=== PATIENT | female | born 1940 | race Caucasian/White ===

== ENCOUNTER 2017-01-02 13:39 | Outpatient (CLI) | payer MEDICARE ==
--- NOTE | 2017-01-02 15:54 | Mammography Report ---
DIGITAL DIAGNOSTIC LEFT MAMMOGRAM: 01/02/2017 CLINICAL INDICATION: Possible nodule on screening. COMPARISON: 12/08/2016. TECHNIQUE: Left true lateral and spot compression views. FINDINGS: Left subglandular silicone implant is stable. The questionable density in the left lower c entral anterior breast dissipates on additional compression. No underlying mass lesion or architectur al distortion is appreciated. IMPRESSION: BENIGN FINDINGS. RECOMMENDATION: ROUTINE ANNUAL SCREENING UNLESS OTHERWISE CLINICALLY INDICATED. BIRADS CATEGORY 2-BENIGN FINDINGS. STANDARD QUALIFYING STATEMENTS 1. This examination was reviewed with the aid of Computer-Aided Detection (CAD). 2. A negative or benign imaging report should not delay biopsy if clinically suspicious findings are present. Consider surgical consultation if warranted. More than 5% of cancers are not identified by i maging. 3. Dense breasts may obscure an underlying neoplasm. JOB #: [id number] EXT JOB #:[id number]
== END 2017-01-02 13:40 | disposition home or self-care (01) ==
LOC: DI 13:39
PROVIDERS: ATTEND Nurse Practitioner Family
DX: R92.8 Other abnormal and inconclusive findings on diagnostic imaging of breast (principal)

== ENCOUNTER 2017-03-26 09:33 | Day surgery (SDC) | payer MEDICARE ==
[2017-03-26 10:06] LABS: GLUCOSE, URINE (UA) NEGATIVE (NEGATIVE); KETONES,URINE (UA) 40 mg/dL (NEGATIVE); LEUKOCYTE ESTERASE, URINE SMALL (NEGATIVE); NITRITE,URINE NEGATIVE (NEGATIVE); OCCULT BLOOD,URINE MODERATE (NEGATIVE); PH,URINE 6.5 PH (5.0-7.5); PROTEIN,URINE NEGATIVE (NEGATIVE); UROBILINOGEN,URINE 0.2 (NORMAL) E.U./dL (NORMAL)
[2017-03-26 10:16] LABS: BILIRUBIN,URINE NEGATIVE (NEGATIVE); CLARITY,URINE SL. CLOUDY (CLEAR); ICTOTEST,URINE NEGATIVE
[2017-03-26 10:19] LABS: RBC,URINE 0-5 /HPF (0-5)
[2017-03-26 10:20] LABS: BACTERIA,URINE Moderate /HPF (None Seen); EPITHELIAL CELLS,UR FEW Transitional /HPF (<= Few); MUCUS,URINE Marked Strands; SQUAMOUS EPITHELIAL CELL,UR NONE SEEN (<= Few)
--- NOTE | 2017-03-26 10:26 | ED Physician Documentation ---
PD HPI ABD PAIN - Stated complaint Stated Complaint: ABD PX - Chief complaint Chief Complaint: Abd Pain - History obtained from History obtained from: Patient, Family - History of Present Illness Timing - onset: Yesterday Timing - duration: Days (1) Timing - details: Gradual onset, Still present Quality: Sharp, Pain Location: RLQ Improved by: Laying still Worsened by: Moving, Position, Palpation Associated symptoms: Nausea Similar symptoms before: Has not had sx before Recently seen: Not recently seen - Additional information Additional information: 76-year-old female was previously well and until yesterday when she began to develop some pain across her upper abdomen. The pain was feeling like a belt across the upper abdomen and it is migrated down to the right lower quadrant over the period of the day. She had a reduced level of appetite and only ate a banana and some water. She did fall off of a ladder about 6 days ago injuring her left eye and her back. She did not injure her abdomen with this with any direct contusion. Review of Systems Constitutional: denies: Fever Eyes: denies: Decreased vision Ears: denies: Ear pain Nose: denies: Congestion Throat: denies: Sore throat Cardiac: denies: Chest pain / pressure, Palpitations Respiratory: denies: Dyspnea GI: reports: Abdominal Pain, Nausea. denies: Abdominal Swelling, Vomiting, Constipation, Diarrhea : denies: Dysuria, Frequency Skin: denies: Rash Musculoskeletal: reports: Back pain. denies: Neck pain, Extremity pain Neurologic: reports: Head injury. denies: Generalized weakness, Focal weakness , Numbness, Headache, LOC PD PAST MEDICAL HISTORY - Past Medical History Past Medical History: No - Past Surgical History Past Surgical History: Yes Ortho: Knee replacement - Present Medications Home Medications: Ambulatory Orders Medication Instructions Recorded Confirmed No Known Home Medications [No 03/26/17 03/26/17 Known Home Medications] - Allergies Allergies/Adverse Reactions: Allergies Allergy/AdvReac Type Severity Reaction Status Date / Time Penicillins Allergy Unknown Verified 03/26/17 09:42 - Social History Does the pt smoke?: Yes Smoking Status: Current every day smoker Does the pt drink ETOH?: No Does the pt have substance abuse?: No - Immunizations Immunizations are current?: No PD ED PE NORMAL - Vitals Vital signs reviewed: Yes (Normal) - General General: Alert and oriented X 3, No acute distress, Well developed/nourished - HEENT HEENT: PERRL, EOMI, Other (The patient does have some ecchymosis around the left periorbital tissues consistent with an injury to the area about 6 days ago. 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, No motor deficit, No sensory deficit, Normal speech Eye Opening: Spontaneous Motor: Obeys Commands Verbal: Oriented GCS Score: 15 - Psych Psych: Normal mood, Normal affect Results - Vitals Vitals: Vital Signs - 24 hr 03/26/17 03/26/17 03/26/17 09:39 11:39 12:48 Temperature 36.1 C L Heart Rate 67 72 78 Respiratory 16 18 16 Rate Blood Pressure 125/73 132/72 H 120/74 O2 Saturation 100 99 94 03/26/17 03/26/17 03/26/17 14:45 14:50 14:55 Temperature Heart Rate Respiratory Rate Blood Pressure O2 Saturation 100 100 100 03/26/17 03/26/17 03/26/17 15:00 15:05 15:10 Temperature Heart Rate Respiratory Rate Blood Pressure O2 Saturation 100 100 100 03/26/17 03/26/17 03/26/17 15:15 15:20 15:30 Temperature Heart Rate Respiratory Rate Blood Pressure O2 Saturation 99 99 97 03/26/17 03/26/17 03/26/17 15:35 15:40 15:45 Temperature Heart Rate Respiratory Rate Blood Pressure O2 Saturation 96 96 96 Oxygen O2 Source Room air - Labs Labs: Laboratory Tests 03/26/17 03/26/17 03/26/17 09:45 10:10 10:10 WBC 9.1 RBC 3.96 L Hgb 13.1 Hct 37.4 MCV 94.3 MCH 33.0 H MCHC 35.0 RDW 12.7 Plt Count 143 MPV 8.0 Neut # 8.2 H Lymph # 0.5 L Garland # 0.4 Eos # 0.0 Baso # 0.0 Absolute Nucleated RBC 0.01 Nucleated RBC % 0.1 Sodium 132 L Potassium 3.6 Chloride 98 L Carbon Dioxide 24 Anion Gap 10.0 BUN 13 Creatinine 0.5 Estimated GFR (MDRD) 120 Glucose 116 H Calcium 9.2 Total Bilirubin 2.9 H AST 27 ALT 21 Alkaline Phosphatase 57 Total Creatine Kinase 38 CK-MB (CK-2) Troponin I Total Protein 6.5 L Albumin 3.9 Globulin 2.6 Albumin/Globulin Ratio 1.5 Lipase 16 L Urine Color YELLOW Urine Clarity SL. CLOUDY Urine pH 6.5 Ur Specific Yarnell 1.020 Urine Protein NEGATIVE Urine Glucose (UA) NEGATIVE Urine Ketones 40 H Urine Occult Blood MODERATE H Urine Nitrite NEGATIVE Urine Bilirubin NEGATIVE Urine Urobilinogen 0.2 (NORMAL) Ur Leukocyte Esterase SMALL H Urine RBC 0-5 Urine WBC 11-25 H Ur Epithelial Cells FEW Transitional Ur Squamous Epith Cells NONE SEEN Urine Bacteria Moderate H Urine Mucus Marked Strands Ur Microscopic Review INDICATED Urine Culture Comments INDICATED 03/26/17 10:10 WBC RBC Hgb Hct MCV MCH MCHC RDW Plt Count MPV Neut # Lymph # Garland # Eos # Baso # Absolute Nucleated RBC Nucleated RBC % Sodium Potassium Chloride Carbon Dioxide Anion Gap BUN Creatinine Estimated GFR (MDRD) Glucose Calcium Total Bilirubin AST ALT Alkaline Phosphatase Total Creatine Kinase CK-MB (CK-2) 1.0 Troponin I < 0.04 Total Protein Albumin Globulin Albumin/Globulin Ratio Lipase Urine Color Urine Clarity Urine pH Ur Specific Yarnell Urine Protein Urine Glucose (UA) Urine Ketones Urine Occult Blood Urine Nitrite Urine Bilirubin Urine Urobilinogen Ur Leukocyte Esterase Urine RBC Urine WBC Ur Epithelial Cells Ur Squamous Epith Cells Urine Bacteria Urine Mucus Ur Microscopic Review Urine Culture Comments - Rads (name of study) CT abdomen and pelvis without Radiology: Prelim report reviewed (Impression: 1. Mildly enlarged appendix with mild periapical stranding may reflect uncomplicated acute appendicitis. 2. Apparent mild descending colonic wall thickening may relate to nondistention, versus mild nonspecific colitis. 3. Other findings as noted above.) Procedures - Bedside sono Bedside sono by EMP: With use of bedside ultrasound the right kidney is imaged there is no evidence of hydronephrosis and the kidney is sonographically nontender. The gallbladder is imaged there are no obvious stones and it is also sonographically nontender. - IVC sono (time) 1020 Bedside IVC sono: IVC measures (cm) (0.97), IVC collapsed c insp (cm) (complete) , Dehydration (est 2 liter deficit) PD MEDICAL DECISION MAKING - ED course Complexity details: reviewed results, re-evaluated patient, considered differential, d/w patient, d/w family ED course: 76-year-old female with abdominal pain starting yesterday that appears to localize to the right lower quadrant does not appear to have gallstones kidney stone or Joseph associated with this she does have some right lower quadrant tenderness and a CT of her abdomen pelvis is obtained. I am concerned about the possibility of abdominal wall strain from her fall on this ladder. CT scan is positive for acute appendicitis. Departure - Departure Disposition: ED Transfer to [facility] Clinical Impression: Appendicitis Qualifiers: Appendicitis type: acute appendicitis Acute appendicitis type: with localized peritonitis Qualified Code(s): K35.3 - Acute appendicitis with localized peritonitis Discharge Date/Time: 03/26/17 13:41
[2017-03-26] MEDS ORDERED: SODIUM CHLORIDE 0.9% 1,000 ML IV ONE (10:30)
[2017-03-26 10:34] LABS: BASOPHILS % (AUTO) 0.1 %; EOSINOPHILS % (AUTO) 0.2 %; HGB - HEMOGLOBIN 13.1 g/dL (12.0-16.0); LYMPHOCYTES # (AUTO) 0.5 10^3/uL (1.5-3.5); LYMPHOCYTES % (AUTO) 5.9 %; MEAN CORPUSCULAR VOLUME 94.3 fL (81.0-99.0); MONOCYTES # (AUTO) 0.4 10^3/uL (0.0-1.0); NEUTROPHILS # (AUTO) 8.2 10^3/uL (1.5-6.6); NEUTROPHILS % (AUTO) 89.8 %; PLT - PLATELET COUNT 143 10^3/uL (130-450); RED BLOOD COUNT 3.96 10^6/uL (4.20-5.40); RED CELL DISTRIBUTION WIDTH 12.7 % (12.0-15.0); WHITE BLOOD COUNT 9.1 x10^3/uL (4.8-10.8)
[2017-03-26 10:55] LABS: ALBUMIN 3.9 g/dL (3.2-5.5); ALBUMIN/GLOBULIN RATIO 1.5 (1.0-2.2); BILIRUBIN,TOTAL 2.9 mg/dL (0.2-1.0); CALCIUM 9.2 mg/dL (8.5-10.3); CREATININE 0.5 mg/dL (0.4-1.0); TOTAL PROTEIN 6.5 g/dL (6.7-8.2)
[2017-03-26 10:56] LABS: TROPONIN I < 0.04 ng/mL (<0.49)
--- NOTE | 2017-03-26 12:12 | CT Preliminary Report ---
Exam: CT ABDOMEN/PELVIS W/O IMPRESSION: 1. Mildly enlarged appendix with mild periappendiceal stranding may reflect uncomplicated acute appen dicitis. 2. Apparent mild descending colonic wall thickening may relate to nondistention, versus mild nonspeci fic colitis. 3. Other findings as noted above. [facility] SITE ID: [id number]
--- NOTE | 2017-03-26 12:12 | CT Report ---
EXAM: CT ABDOMEN AND PELVIS EXAM DATE: 03/26/2017 11:38 AM. CLINICAL HISTORY: RLQ pain . COMPARISONS: None. TECHNIQUE: Routine helical CT imaging was performed through the abdomen and pelvis. IV contrast: None . Enteric contrast: No. Reconstructions: Coronal and sagittal. In accordance with CT protocol optimization, one or more of the following dose reduction techniques w ere utilized for this exam: automated exposure control, adjustment of mA and/or KV based on patient s ize, or use of iterative reconstructive technique. FINDINGS: Lung Bases: Calcified breast implants. Mild linear scarring/atelectasis at the right lung base. Other camargo clear. Liver: Normal. No masses. Gallbladder/Bile Ducts: Unremarkable. Spleen: Normal. Pancreas: Normal. Adrenal Glands: Normal. Kidneys: Normal. No masses or hydronephrosis. No convincing urinary calculi. Peritoneal Cavity/Bowel: No convincing free fluid or free air, or adenopathy. No masses or acute infl ammatory process. Mildly enlarged appendix measuring up to approximately 10 mm transverse with mild p eriappendiceal stranding may reflect uncomplicated acute appendicitis. No organized fluid collection. Apparent mild descending colonic wall thickening may relate to nondistention, versus mild nonspecific colitis. Pelvic Organs: Uterine calcification suggesting calcified fibroid. The bladder and visualized pelvic organs are otherwise within normal limits. Vasculature: No aneurysms or other significant abnormality. Bones: No significant abnormality. Other: Small fat-containing umbilical hernia. IMPRESSION: 1. Mildly enlarged appendix with mild periappendiceal stranding may reflect uncomplicated acute appen dicitis. 2. Apparent mild descending colonic wall thickening may relate to nondistention, versus mild nonspeci fic colitis. 3. Other findings as noted above. [facility] Referring Provider Line: [phone] SITE ID: [id number]
[2017-03-26 12:49] VITALS: BP 120/74
[2017-03-26] MEDS ORDERED: ONDANSETRON 4 MG/2 ML VIAL IVP STA (13:02)
[2017-03-26] MEDS ORDERED: LIDOCAINE-MPF 2% 5 ML VIAL IM ONE (13:15)
[2017-03-26] MEDS ORDERED: ROCURONIUM 50 MG/5 ML VIAL IVP ONE (13:15)
[2017-03-26] MEDS ORDERED: GLYCOPYRROLATE 1 MG/5 ML VIAL IVP ONE (13:15)
[2017-03-26] MEDS ORDERED: PROPOFOL 200 MG/20 ML VIAL IVP ONE (13:15)
[2017-03-26] MEDS ORDERED: SUCCINYLCHOLINE 200 MG/10 ML VIAL IVP ONE (13:15)
[2017-03-26] MEDS ORDERED: fentaNYL 100 MCG/2 ML VIAL IVP ONE (13:15)
[2017-03-26] MEDS ORDERED: NEOSTIGMINE 1 MG/1 ML 10 ML MDV IVP ONE (13:15)
[2017-03-26] MEDS ORDERED: cefTRIAXone 1 GM in SODIUM CHLORIDE 0.9% MINIBAG 100 ML IV STA (13:15)
[2017-03-26] MEDS ORDERED: MIDAZOLAM 2 MG/2 ML VIAL IVP ONE (13:15)
[2017-03-26] MEDS ORDERED: DEXAMETHASONE 4 MG/ML VIAL IVP ONE (13:15)
[2017-03-26] MEDS ORDERED: ONDANSETRON 4 MG/2 ML VIAL IVP ONE (13:15)
[2017-03-26] MEDS ORDERED: cefTRIAXone 1 GM VIAL ONE (13:35)
[2017-03-26] MEDS ORDERED: LACTATED RINGERS 1,000 ML IV ONE ×2 (13:41→15:11)
[2017-03-26] MEDS ORDERED: LIDOCAINE 1%-EPI 1:100000 20 ML MDV SUBQ ONE (14:15)
--- NOTE | 2017-03-26 14:49 | OPERATIVE REPORT ---
Operative Report - General Procedure Date: 03/26/17 - Other Other Information/Narrative: Preoperative diagnosis: Acute appendicitis Postoperative diagnosis: Same Anesthesia: General Surgeon: Dr. Larsen Indication for procedure: Patient presents to the emergency department with CT scan findings of acute appendicitis. The patient complained of pain for 2 days. Findings: After obtaining informed consent the patient she was brought into the operating room position on the operating table in supine position taking noted pressure points. The patient was intubated by anesthesia. SCD boots were applied. Perioperative antibiotics were administered. The patient was subsequently prepped and draped in the usual sterile fashion and a timeout was taken according to protocol. A 1 cm incision was created at the umbilicus and deepened down to the umbilical stalk. This was grasped and elevated and a vares needle inserted. The patient become bradycardic upon insuflation of the abdomen and insufflation had to be stopped until medication was administered. Upon re-establishment of pneumoperitoneum she remained hemodynamically stable. A 5 mm incision was created in the left lateral abdominal wall and using the Optiview trocar the abdominal cavity was entered. The vares needle was noted to be in the abdominal cavity, however, pneumatosis of the transverse colon omentum was noted. A second 5 mm incision was created in the suprapubic region and a 5 mm trocar inserted under direct visualization. The transverse colon and mesentary were carefully inspected anteriorly and posteriorly by flipping the omentum and no injuries were noted. The patient was then positioned with the right side up in Trendelenburg. The appendix was exposed and was noted to be inflamed with surrounding periappendiceal fluid. The mesoappendix was divided with the LigaSure device. The base of the appendix was then divided with the Endo CICI 35 mm stapling device. The appendix was placed in a specimen bag and was removed through the umbilical port. The cecum and staple line were then inspected and hemostasis was noted to be achieved. The periappendiceal fluid was evacuated with the suction device. The patient was then flattened and the umbilical port site was closed with a [id number] 0 Vicryl suture. The abdominal cavity was allowed to desufflate. 30 cc of local anesthetic was infiltrated. The incisions were then closed with 4-0 Monocryl. Dermabond was applied. The patient was subsequently extubated and taken to recovery room in stable condition. Estimated blood loss: 5 cc Specimen: Appendix Complications: None
[2017-03-26] MEDS ORDERED: ACETAMINOPHEN 1,000 MG/100 ML 100 ML IV ONE (15:27)
[2017-03-26] MEDS ORDERED: KETOROLAC 15 MG/ML VIAL ONE (15:27)
[2017-03-26] MEDS ORDERED: oxyCOD/ACETAMIN 5 MG/325 MG TABLET PO PRN (19:55)
== END 2017-03-26 20:00 | disposition home or self-care (01) ==
LOC: ED 09:33 → SDS 13:47 → OBS 16:00 → SDS 20:00
PROVIDERS: ATTEND Surgery
PROC: 0DTJ4ZZ Resection of Appendix, Percutaneous Endoscopic Approach (ICD-10-PCS; principal; 2017-03-26 14:00)
DX: K35.80 Unspecified acute appendicitis (principal); F17.200 Nicotine dependence, unspecified, uncomplicated
CPT/HCPCS: 36415; 44970; 74176; 80053; 81001; 82550; 82553; 83690; 84484; 85025; 87086; 96361; 96374; 96375; 99283; 99285; A9270; J0131; J7120; 81003; 99284

== ENCOUNTER 2017-10-05 08:27 | Day surgery (SDC) | payer MEDICARE ==
[2017-10-05] MEDS ORDERED: KETOROLAC 0.45% OPHTH DROPS ONE (08:43)
[2017-10-05] MEDS ORDERED: CYCLOPENTOLATE 1% OPHTH DROPS 2 ML ONE (08:43)
[2017-10-05] MEDS ORDERED: PHENYLEPHRINE 2.5% OPHTH 2 ML DROPS ONE (08:43)
[2017-10-05] MEDS ORDERED: PROPARACAINE 0.5% OPHTH DROPS 15 ML ONE (08:44)
[2017-10-05] MEDS ORDERED: CYCLOPENTOLATE 1% OPHTH DROPS 2 ML LEFTEYE ONE (09:05)
[2017-10-05] MEDS ORDERED: PHENYLEPHRINE 2.5% OPHTH 2 ML DROPS LEFTEYE ONE (09:05)
[2017-10-05] MEDS ORDERED: KETOROLAC 0.45% OPHTH DROPS LEFTEYE ONE (09:05)
[2017-10-05] MEDS ORDERED: PROPARACAINE 0.5% OPHTH DROPS 15 ML LEFTEYE ONE ×2 (09:05→09:55)
--- NOTE | 2017-10-05 09:07 | ANESTHESIA ---
Pre-Anesthesia VS, & Labs - Diagnosis left senile combined cataract - Procedure left extraction cataract with lens implant Vital Signs: Temp Pulse Resp BP Pulse Ox 37.0 C 18 136/76 H 98 10/05/17 08:57 10/05/17 08:57 10/05/17 08:57 10/05/17 08:57 Height 5 ft 8 in Weight (kg) 75.5 kg Body Mass Index 23.6 - NPO >8 hours - Is Patient ?: Not Applicable - Lab Results Lab results reviewed: Yes Home Medications and Allergies Home Medications: Ambulatory Orders Medication Instructions Recorded Confirmed Calcium Carbonate [Calcium] 600 mg PO DAILY 10/04/17 10/04/17 Lactobacillus Acidophilus 1 each PO DAILY 10/04/17 10/04/17 [Probiotic Acidophilus] Multivitamin [Multivitamins] 1 each PO DAILY 10/04/17 10/04/17 Resveratrol/Grape Skin Extract 1 each PO DAILY 10/04/17 10/04/17 [Resveratrol 100 mg Tablet] Allergies/Adverse Reactions: Allergies Allergy/AdvReac Type Severity Reaction Status Date / Time Penicillins Allergy Hives Verified 10/04/17 12:55 Sulfa (Sulfonamide Allergy Hives Verified 10/05/17 09:03 Antibiotics) Anes History & Medical History - Anesthetic History Anesthesia Complications: reports: No previous complications Family history of Anesthesia Complications: Denies Family history of Malignant Hyperthermia: Denies - Medical History Cardiovascular: reports: None Pulmonary: reports: None Gastrointestinal: reports: None Urinary: reports: Incontinence Musculoskeletal: reports: Rheumatoid arthritis Endocrine/Autoimmune: reports: None Skin: reports: None Smoking Status: Former smoker - Surgical History Orthopedic: Knee replacement Exam General: Alert, Oriented x3, Cooperative, No acute distress Dental: Partials Lower Mouth Openin Fingerbreadth Mallampati classification: II Thyromental Distance: 4-6 cm Respiratory: Lungs clear, Normal breath sounds, No respiratory distress, No accessory muscle use Cardiovascular: Regular rate, Normal S1, Normal S2, No murmurs Mental/Cognitive Status: Alert/Oriented X3, Normal for patient Cognitive Status: Within normal limits Plan Anesthesia Type: MAC Consent for Procedure(s) Verified and Reviewed: Yes Code Status: Attempt Resuscitation ASA classification: 2-Mild systemic disease Is this case an emergency?: No
[2017-10-05] MEDS ORDERED: LACTATED RINGERS 500 ML IV ONE (09:08)
[2017-10-05] MEDS ORDERED: BRIMONIDINE 0.2% OPHTH DROPS 5 ML OPTH ONE (09:53)
[2017-10-05] MEDS ORDERED: EPINEPHrine 1 MG/ML AMP IR ONE (09:53)
[2017-10-05] MEDS ORDERED: VANCOMYCIN OPHTHALMI 8MG/0.8ML 8 MG/0.8 ML SYRINGE IO ONE ×2 (09:53→09:58)
[2017-10-05] MEDS ORDERED: TRIAMCIN/MOXIFLOX/VANCO 1 ML VIAL IO ONE (09:54)
[2017-10-05] MEDS ORDERED: TIMOLOL 0.5% OPHTH DROPS OPTH ONE (09:54)
[2017-10-05] MEDS ORDERED: CHONDR SULF/HYALURONATE SYRINGE IO ONE (09:54)
[2017-10-05] MEDS ORDERED: BSS/LIDOCAINE/EPINEPHRINE 1 ML SYRINGE IO ONE ×2 (09:54)
[2017-10-05] MEDS ORDERED: MIDAZOLAM 2 MG/2 ML VIAL IVP ONE (09:55)
[2017-10-05] MEDS ORDERED: BRIMONIDINE 0.2% OPHTH DROPS 5 ML ONE ×4 (09:58→10:00)
[2017-10-05] MEDS ORDERED: EPINEPHrine 1 MG/ML AMP ONE (09:58)
[2017-10-05] MEDS ORDERED: TIMOLOL 0.5% OPHTH DROPS ONE (09:58)
[2017-10-05] MEDS ORDERED: TRIAMCIN/MOXIFLOX OPHTHALMIC 0.6 ML VIAL IO ONE (09:58)
[2017-10-05] MEDS ORDERED: BSS/LIDOCAINE/EPINEPHRINE 1 ML SYRINGE ONE (09:58)
[2017-10-05 11:09] VITALS: BP 119/64
--- NOTE | 2017-10-05 13:02 | OPERATIVE REPORT ---
DATE OF SERVICE: 10/05/2017 Physician: Yadiel Chappell MD PREOPERATIVE DIAGNOSIS: Visually significant cataract, left eye. This was her first cataract surger y. POSTOPERATIVE DIAGNOSIS: Visually significant cataract, left eye. This was her first cataract surge ry. NAME OF PROCEDURE: Phacoemulsification with posterior chamber intraocular lens implant, left eye. SURGEON: Yadiel Chappell MD ANESTHESIA: Monitored anesthesia care. COMPLICATIONS: None. OPERATIVE INDICATIONS: This is a 76-year-old woman with progressive vision loss in the left eye due to 2+ nuclear sclerotic and vacuole cataract. Best corrected visual acuity was 20/40, with glare to 20/70 in the left eye. Indications for surgery are overall decrease in vision, difficulty seeing wor ds, needs to read large print, difficulty seeing street signs, and difficulty driving in low light or at night. She was consented at length concerning risks and benefits of cataract surgery, after whic h she expressed a desire to proceed with surgery. OPERATIVE PROCEDURE: The patient was taken to OR #3, and placed under monitored anesthesia care. A surgical timeout was conducted confirming the correct patient, correct procedure, and correct surgica l site. She was given topical anesthesia, and then prepped and draped in usual sterile fashion. The eye was entered at the 6 and 3 o'clock positions. Intracameral Shugarcaine was injected into the an terior chamber, followed by Viscoat. A continuous-tear curvilinear capsulorrhexis was performed. Th e nucleus was hydrodissected and phacoemulsified. The cortex was evacuated using automated infusion and aspiration. Provisc was injected in the capsular bag, and a 21.0 diopter intraocular lens was in serted in the bag. Approximately 0.8 mL of a mixture of triamcinolone, moxifloxacin and vancomycin w as injected subconjunctivally in the superior quadrant for infection and inflammation prophylaxis. I and A was used to evacuate the viscoelastic material. The eye was inflated to physiologic pressure using balanced salt solution, and found to be watertight. The patient was taken from the operating r oom in good condition, given postop instructions. TD: 10/05/2017 10:11
== END 2017-10-05 08:28 | disposition home or self-care (01) ==
LOC: SDS 08:27
PROVIDERS: ATTEND Ophthalmology
PROC: 08RK3JZ Replacement of Left Lens with Synthetic Substitute, Percutaneous Approach (ICD-10-PCS; principal; 2017-10-05 09:30)
DX: H25.812 Combined forms of age-related cataract, left eye (principal); M06.9 Rheumatoid arthritis, unspecified; Z87.891 Personal history of nicotine dependence
CPT/HCPCS: 66984; A9270; J3490; V2632

== ENCOUNTER 2018-11-08 13:09 | Emergency (ER) | payer MEDICARE ==
--- NOTE | 2018-11-08 14:28 | XRAY Report ---
Reason: fall, injury Procedure Date: 11/08/2018 Accession Number: [id number] / [id number] Procedure: XR - Shoulder 3 View LT CPT Code: FULL RESULT: EXAM: LEFT SHOULDER RADIOGRAPHY EXAM DATE: 11/08/2018 02:16 PM. CLINICAL HISTORY: Fall, injury left femoral neck. COMPARISON: None. TECHNIQUE: 3 views. FINDINGS: Bones: Cortical step off a subtle lucency at the humeral neck, consistent with a nondisplaced fracture. Joints: No calcific tendinosis. No dislocation identified. Soft tissues: The visualized hemithorax is unremarkable. No soft tissue swelling. IMPRESSION: Nondisplaced fracture of the left humeral neck. [facility]
[2018-11-08] MEDS ORDERED: HYDROcod/ACETAM 5/325 MG TABLET PO STA (14:46)
--- NOTE | 2018-11-08 14:48 | ED Physician Documentation ---
PD HPI UPPER EXT INJURY - Stated complaint Stated Complaint: LT SHOULDER PAIN - Chief complaint Chief Complaint: Trauma Ext - History obtained from History obtained from: Patient - History of Present Illness Location: Left (She had a trip and fall in her driveway this morning landing directly on the left shoulder. She has moderate pain in the left shoulder without other injuries. She is right-handed.) Review of Systems Constitutional: reports: Reviewed and negative Throat: reports: Reviewed and negative Cardiac: reports: Reviewed and negative PD PAST MEDICAL HISTORY - Past Medical History Cardiovascular: None Respiratory: None Endocrine/Autoimmune: None GI: None : Incontinence HEENT: None Psych: Anxiety Musculoskeletal: Rheumatoid arthritis Derm: None - Past Surgical History Past Surgical History: Yes Ortho: Knee replacement - Present Medications Home Medications: Ambulatory Orders Medication Instructions Recorded Confirmed Calcium Carbonate [Calcium] 600 mg PO DAILY 10/04/17 10/04/17 Lactobacillus Acidophilus 1 each PO DAILY 10/04/17 10/04/17 [Probiotic Acidophilus] Multivitamin [Multivitamins] 1 each PO DAILY 10/04/17 10/04/17 Resveratrol/Grape Skin Extract 1 each PO DAILY 10/04/17 10/04/17 [Resveratrol 100 mg Tablet] Hydrocodone/Acetaminophen 1 - 2 each PO Q6H PRN #20 tablet 11/08/18 [Hydrocodon-Acetaminophen 5-325] - Allergies Allergies/Adverse Reactions: Allergies Allergy/AdvReac Type Severity Reaction Status Date / Time Penicillins Allergy Hives Verified 11/08/18 13:14 Sulfa (Sulfonamide Allergy Hives Verified 11/08/18 13:14 Antibiotics) - Social History Does the pt smoke?: Yes Smoking Status: Former smoker Does the pt drink ETOH?: No Does the pt have substance abuse?: No - Immunizations Immunizations are current?: No PD ED PE NORMAL - Vitals Vital signs reviewed: Yes - General General: Alert and oriented X 3, No acute distress - HEENT HEENT: PERRL, EOMI - Neck Neck: Supple, no meningeal sign, No bony TTP, No bruit - Extremities Extremities: Other (Tender the humeral head on the left without deformity. She cannot range the shoulder at all due to pain. Normal neurovascular function over the deltoid and in the hand.) - Neuro Neuro: Alert and oriented X 3, Normal speech Results - Vitals Vitals: Vital Signs - 24 hr 11/08/18 13:14 Temperature 36.5 C Heart Rate 60 Respiratory 15 Rate Blood Pressure 109/49 L O2 Saturation 98 Oxygen O2 Source Room air - Rads (name of study) L shoulder XT Radiology: EMP read contemporaneously (Left humeral neck fracture) PD MEDICAL DECISION MAKING - ED course ED course: 77-year-old woman with nondisplaced fracture of the left humeral neck. She is placed in a sling and orthopedic follow-up was advised. Departure - Departure Disposition: 01 Home, Self Care Clinical Impression: Fracture of neck of left humerus Qualifiers: Encounter type: initial encounter Fracture type: closed Qualified Code(s): S42.212A - Unspecified displaced fracture of surgical neck of left humerus, initial encounter for closed fracture Condition: Good Record reviewed to determine appropriate education?: Yes Instructions: ED Fx Upper Ext Follow-Up: [facility] [Provider Group] - Within 1 week Prescriptions: Hydrocodone/Acetaminophen [Hydrocodon-Acetaminophen 5-325] 1 - 2 each PO Q6H PRN #20 tablet PRN Reason: pain Comments: Do not drink or drive while taking narcotic pain medication. Note that many narcotic pain relievers also contain Tylenol/acetaminophen. Please ensure that your total dose of acetaminophen from all sources does not exceed 3 g (3000 mg) per day. You may get constipated while on this medication. Take a stool softener such as Colace twice a day while you are on it. Also add an lywv-cks-ucsbwta laxative such as senna or MiraLAX on any day that you do not have a bowel movement. If you received a narcotic pain medication or sedative while in the emergency department, do not drive for the next 24 hours.
[2018-11-08 15:15] VITALS: BP 115/64
--- NOTE | 2018-11-09 11:12 | ED Physician Documentation ---
ED Addendum - Addendum Addendum: 11/09/18 11:11 Koffi called and requested that I put in a consult for orthopedics for this patient. A consult was placed.
== END 2018-11-08 15:16 | disposition home or self-care (01) ==
LOC: ED 13:09
DX: S42.215A Unspecified nondisplaced fracture of surgical neck of left humerus, initial encounter for closed fracture (principal); W01.0XXA Fall on same level from slipping, tripping and stumbling without subsequent striking against object, initial encounter; Y92.008 Other place in unspecified non-institutional (private) residence as the place of occurrence of the external cause; Z87.891 Personal history of nicotine dependence
CPT/HCPCS: 73030; 99283; 99284; A9270

== ENCOUNTER 2020-04-29 20:15 | Emergency (ER) | payer MEDICARE ==
--- NOTE | 2020-04-29 20:30 | ED Physician Documentation ---
PD HPI DYSPNEA - Stated complaint Stated Complaint: SWOLLEN ANKLES - Chief complaint Chief Complaint: General - History obtained from History obtained from: Patient - History of Present Illness Timing - onset: How many weeks ago (2-3 weeks of swelling and some pain in legs/ankles, particularly worse the past few days. 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 Less swelling when she works out/exercises. Less swollen in mornings.) Timing - details: Gradual onset, Waxing and waning Inciting event(s): No: URI Improved by: Other (better with legs elevated. Denies dyspnea, chest pain, skin sores. She has noted some redness and warmth around left ankle the past few days.) Worsened by: No: Laying flat Associated symptoms: Bilateral edema (but more on left lower leg). No: Fever, Cough, Wheezing, Chest pain / discomfort Similar symptoms before: Has not had sx before Review of Systems Constitutional: denies: Fever, Chills Nose: denies: Rhinorrhea / runny nose, Congestion Throat: denies: Sore throat Cardiac: denies: Chest pain / pressure Respiratory: denies: Dyspnea, Cough Skin: denies: Rash, Lesions Musculoskeletal: reports: Joint swelling (left ankle with some mild redness.) PD PAST MEDICAL HISTORY - Past Medical History Past Medical History: No Cardiovascular: None Respiratory: None Endocrine/Autoimmune: None GI: None : Incontinence HEENT: None Psych: Anxiety Musculoskeletal: Rheumatoid arthritis Derm: None - Past Surgical History Past Surgical History: Yes Ortho: Knee replacement - Present Medications Home Medications: Ambulatory Orders Medication Instructions Recorded Confirmed No Known Home Medications 04/29/20 04/29/20 - Allergies Allergies/Adverse Reactions: Allergies Allergy/AdvReac Type Severity Reaction Status Date / Time Penicillins Allergy Hives Verified 04/29/20 20:19 Sulfa (Sulfonamide Allergy Hives Verified 04/29/20 20:19 Antibiotics) - Social History Does the pt smoke?: Yes Smoking Status: Current every day smoker Does the pt drink ETOH?: No Does the pt have substance abuse?: No - Immunizations Immunizations are current?: No - POLST Patient has POLST: No PD ED PE NORMAL - Vitals Vital signs reviewed: Yes - General General: Alert and oriented X 3, No acute distress, Well developed/nourished - Cardiac Cardiac: RRR, No murmur - Respiratory Respiratory: Clear bilaterally - Back Back: No CVA TTP - Derm Derm: Normal color, Warm and dry, No rash - Extremities Extremities: No calf tenderness / cord, Other (1+ edema right lower leg and ankle. 2+ in left. No calf tenderness. There is tenderness with mild warmth/redness but no skin sores on anterior left base of foot/ankle. No noted effusion. ) - Neuro Neuro: Alert and oriented X 3, No motor deficit, No sensory deficit, Normal speech Results - Vitals Vitals: Vital Signs - 24 hr 04/29/20 04/29/20 04/29/20 20:21 20:22 22:30 Temperature 36.7 C 36.7 C 36.8 C Heart Rate 57 L 57 L 69 Respiratory 18 18 12 Rate Blood Pressure 124/100 H 124/100 H 133/71 H O2 Saturation 97 97 97 Oxygen O2 Source Room air - Labs Labs: Laboratory Tests 04/29/20 04/29/20 04/29/20 20:34 22:26 22:26 WBC 4.6 L RBC 3.98 L Hgb 13.0 Hct 39.5 MCV 99.2 H MCH 32.7 H MCHC 32.9 RDW 12.2 Plt Count 155 MPV 9.6 Neut # (Auto) 2.4 Lymph # (Auto) 1.7 [place] # (Auto) 0.4 Eos # (Auto) 0.1 Baso # (Auto) 0.0 Absolute Nucleated RBC 0.00 Nucleated RBC % 0.0 ESR Sodium 137 Potassium 3.4 L Chloride 100 L Carbon Dioxide 24 Anion Gap 13.0 BUN 25 H Creatinine 0.6 Estimated GFR (MDRD) 97 Glucose 94 Calcium 10.5 H Total Bilirubin 0.9 AST 26 ALT 18 Alkaline Phosphatase 58 B-Natriuretic Peptide Total Protein 7.3 Albumin 4.6 Globulin 2.7 Albumin/Globulin Ratio 1.7 Lipase 36 Urine Color YELLOW Urine Clarity HAZY Urine pH 6.5 Ur Specific [place] 1.025 Urine Protein NEGATIVE Urine Glucose (UA) NEGATIVE Urine Ketones NEGATIVE Urine Occult Blood TRACE-INTA Urine Nitrite NEGATIVE Urine Bilirubin NEGATIVE Urine Urobilinogen 0.2 (NORMAL) Ur Leukocyte Esterase MODERATE H Urine RBC 0-5 Urine WBC >25 H Ur Squamous Epith Cells RARE Squamous Urine Bacteria Few Ur Microscopic Review INDICATED Urine Culture Comments INDICATED 04/29/20 04/29/20 22:26 22:26 WBC RBC Hgb Hct MCV MCH MCHC RDW Plt Count MPV Neut # (Auto) Lymph # (Auto) [place] # (Auto) Eos # (Auto) Baso # (Auto) Absolute Nucleated RBC Nucleated RBC % ESR 24 Sodium Potassium Chloride Carbon Dioxide Anion Gap BUN Creatinine Estimated GFR (MDRD) Glucose Calcium Total Bilirubin AST ALT Alkaline Phosphatase B-Natriuretic Peptide 81 Total Protein Albumin Globulin Albumin/Globulin Ratio Lipase Urine Color Urine Clarity Urine pH Ur Specific [place] Urine Protein Urine Glucose (UA) Urine Ketones Urine Occult Blood Urine Nitrite Urine Bilirubin Urine Urobilinogen Ur Leukocyte Esterase Urine RBC Urine WBC Ur Squamous Epith Cells Urine Bacteria Ur Microscopic Review Urine Culture Comments - Rads (name of study) duplex left leg Radiology: Prelim report reviewed (no DVT), See rad report chest xray Radiology: Prelim report reviewed (no vascular congestion nor effusions. ), See rad report PD MEDICAL DECISION MAKING - ED course Complexity details: reviewed results, considered differential (likely dependent edema from sitting/position and can use compressive socks, elevate legs. Her left ankle likely with some RA or gout flare. NSAIDs for that. ), d/w patient Departure - Departure Disposition: 01 Home, Self Care Clinical Impression: Swelling of lower leg Ankle pain, left Qualifiers: Chronicity: acute Qualified Code(s): M25.572 - Pain in left ankle and joints of left foot Condition: Stable Record reviewed to determine appropriate education?: Yes Instructions: ED Edema Legs Bilateral Follow-Up: Pily Riley ARNP [Primary Care Provider] - Comments: No signs of heart failure nor kidney failure to suggest fluid overload. There were a few white cells in your urine but not a clear infection at this point. The urine culture will result in a couple of days and see if there is any more distinct signs of infection. The swelling in your legs would seem related to gravity. Where some compressive stockings/socks that are available just at normal shopping areas such as [employer] or the local [employer]. Wear these when you are sitting and writing in your legs are in a downward direction. Continue your normal exercise and activities. Exercise provides compression of the muscles which improves return blood flow up the veins from the legs. No signs of blood clots on ultrasound of your leg. The ankle pain and swelling and mild redness likely is a flare of some arthritis. Treat this with some naproxen or ibuprofen 2 to 3 tablets 3 times a day for the next 5 or 6 days. Add Tylenol if needed for pain. Recheck if not improved well regarding the ankle pain and swelling over the next several days to a week. The use swelling in the legs otherwise is ongoing treatment with the exercise elevating and compressive socks and should do better with continual attention with those. Discharge Date/Time: 04/29/20 23:28
[2020-04-29] MEDS ORDERED: NAPROXEN 250 MG TABLET PO STA (20:59)
[2020-04-29 21:05] LABS: BILIRUBIN,URINE NEGATIVE (NEGATIVE); GLUCOSE, URINE (UA) NEGATIVE (NEGATIVE); KETONES,URINE (UA) NEGATIVE (NEGATIVE); LEUKOCYTE ESTERASE, URINE MODERATE (NEGATIVE); NITRITE,URINE NEGATIVE (NEGATIVE); OCCULT BLOOD,URINE TRACE-INTA (NEGATIVE); PH,URINE 6.5 PH (5.0-7.5); PROTEIN,URINE NEGATIVE (NEGATIVE); UROBILINOGEN,URINE 0.2 (NORMAL) E.U./dL (NORMAL)
[2020-04-29 21:12] LABS: CLARITY,URINE HAZY (CLEAR)
[2020-04-29 21:13] LABS: BACTERIA,URINE Few /HPF (None Seen); RBC,URINE 0-5 /HPF (0-5); SQUAMOUS EPITHELIAL CELL,UR RARE Squamous (<= Few); WBC,URINE >25 /HPF (0-5)
--- NOTE | 2020-04-29 21:43 | XRAY Report ---
PROCEDURE: Chest 1 View X-Ray INDICATIONS: chest pain TECHNIQUE: One view of the chest was acquired. COMPARISON: None. FINDINGS: Surgical changes and devices: Bilateral breast implants with capsular calcifications are noted. Lungs and pleura: No pleural effusions or pneumothorax. Lungs are clear. Mediastinum: Mediastinal contours appear normal. Heart size is normal. Bones and chest wall: No suspicious bony lesions. Overlying soft tissues appear unremarkable. IMPRESSION: Chest without acute cardiopulmonary abnormalities Reviewed by: Wyatt Andrews MD on 04/29/2020 9:41 PM PDT Approved by: Wyatt Andrews MD on 04/29/2020 9:41 PM PDT Station ID: [id number]
[2020-04-29 22:33] LABS: BASOPHILS % (AUTO) 0.7 %; EOSINOPHILS # (AUTO) 0.1 10^3/uL (0.0-0.7); HCT - HEMATOCRIT 39.5 % (37.0-47.0); LYMPHOCYTES # (AUTO) 1.7 10^3/uL (1.5-3.5); LYMPHOCYTES % (AUTO) 36.1 %; MEAN CORPUSCULAR HEMOGLOBIN 32.7 pg (27.0-31.0); MEAN CORPUSCULAR HGB CONC 32.9 g/dL (32.0-36.0); MEAN CORPUSCULAR VOLUME 99.2 fL (81.0-99.0); MEAN PLATELET VOLUME 9.6 fL (7.9-10.8); MONOCYTES # (AUTO) 0.4 10^3/uL (0.0-1.0); MONOCYTES % (AUTO) 8.7 %; NEUTROPHILS # (AUTO) 2.4 10^3/uL (1.5-6.6); NEUTROPHILS % (AUTO) 51.3 %; PLT - PLATELET COUNT 155 10^3/uL (130-450); RED BLOOD COUNT 3.98 10^6/uL (4.20-5.40); RED CELL DISTRIBUTION WIDTH 12.2 % (12.0-15.0); WHITE BLOOD COUNT 4.6 x10^3/uL (4.8-10.8)
[2020-04-29 22:47] LABS: ALBUMIN 4.6 g/dL (3.2-5.5); ALBUMIN/GLOBULIN RATIO 1.7 (1.0-2.2); BILIRUBIN,TOTAL 0.9 mg/dL (0.2-1.0); CALCIUM 10.5 mg/dL (8.5-10.3); CREATININE 0.6 mg/dL (0.4-1.0); POTASSIUM 3.4 mmol/L (3.5-5.0); TOTAL PROTEIN 7.3 g/dL (6.7-8.2)
[2020-04-29 23:28] VITALS: BP 133/71
--- NOTE | 2020-04-30 07:26 | Ultrasound Report ---
PROCEDURE: Duplex Ext Veins Left INDICATIONS: swelling/pain left lower leg 2 wks/worse few days TECHNIQUE: Real-time imaging, as well as color and pulse Doppler interrogation, were performed of the lower extr emity deep veins from the inguinal ligament to the popliteal fossa. COMPARISON: None. FINDINGS: The deep veins are normally compressible, and free of intraluminal thrombus. Color and pu lse Doppler demonstrate normal phasic intraluminal flow. There is normal augmentation response to di stal compression maneuver. IMPRESSION: No evidence of deep vein thrombosis involving the left lower extremity. Reviewed by: Britt Barbosa MD, PhD on 04/30/2020 7:25 AM PDT Approved by: Britt Barbosa MD, PhD on 04/30/2020 7:25 AM PDT Station ID: [id number]
== END 2020-04-29 23:28 | disposition home or self-care (01) ==
LOC: ED 20:15
DX: M25.572 Pain in left ankle and joints of left foot (principal); F17.200 Nicotine dependence, unspecified, uncomplicated
CPT/HCPCS: 36415; 71045; 80053; 81001; 83690; 83880; 85025; 85651; 87086; 93971; 99284; A9270; 81003

== ENCOUNTER 2020-06-14 08:00 | Outpatient (CLI) | payer MEDICARE | END 2020-06-14 23:59 | disposition home or self-care (01) | LOC: LAB.S 08:00 | PROVIDERS: ATTEND Physician Assistant | DX: R30.0 Dysuria (principal); N39.0 Urinary tract infection, site not specified | CPT/HCPCS: 87086 ==